=== PATIENT | male | born 1940 | race Caucasian/White ===

== ENCOUNTER 2020-01-23 12:18 | Emergency (ER) | payer MEDICARE, BC ==
[~2020-01-23 12:18] MED LIST: Dextrose 50% Abboject 50 ML SYRINGE ONE
[2020-01-23 12:53] LABS: #Lymphocytes 1.3 thou/uL (1.20-3.40); #Monocytes 0.5 thou/uL (0.11-0.59); #Neutrophils 8.8 thou/uL (1.40-6.50); %Basophils 0.1 % (0.0-1.0); %Eosinophils 0.3 % (0.0-10.0); %Lymphocytes 12.1 % (21.0-51.0); %Monocytes 4.8 % (0.0-10.0); %Neutrophils 82.6 % (42.0-75.0); Hemoglobin 8.6 g/dL (14.0-18.0); Mean Corpuscular HGB CONC 33.2 g/dL (32.0-36.0); Mean Corpuscular Hemoglobin 32.9 pg (27.0-31.0); Mean Corpuscular Volume 98.9 fL (78.0-98.0); Mean Platelet Volume 9.3 fL (7.4-10.4); Platelet Count 152 thou/uL (130-400); RBC Distribution Width 14.2 % (11.5-14.5); Red Blood Cell (RBC) Count 2.63 mill/uL (4.70-6.10); White Blood Cell (WBC) Count 10.7 thou/uL (4.8-10.8)
[2020-01-23 13:10] LABS: ALT (SGPT) 12 U/L (8-55); AST (SGOT) 18 U/L (5-34); Alkaline Phosphatase 90 U/L (40-110); Anion Gap 12 mmol/L (10-20); BUN (Urea Nitrogen) 66 mg/dL (8.4-25.7); Bilirubin, Total 0.2 mg/dL (0.2-1.2); CK (CPK) 21 U/L (30-200); Calc. Creatinine Clearance 0 mL/min (70-130); Calcium 7.7 mg/dL (7.8-10.44); Carbon Dioxide 24 mmol/L (23-31); Chloride 106 mmol/L (98-107); Estimated GFR-MDRD 27; Globulin 2.9 g/dL (2.4-3.5); Magnesium 1.6 mg/dL (1.6-2.6); Potassium 3.5 mmol/L (3.5-5.1); Protein, Total 4.9 g/dL (5.8-8.1); Sodium 138 mmol/L (136-145)
[2020-01-23 13:16] LABS: Glucose 30 mg/dL (83-110)
--- NOTE | 2020-01-23 13:34 | CT ---
CT HEAD WITHOUT CONTRAST: INDICATION: Mental status change. COMPARISON: No comparison. FINDINGS: No evidence of intracranial mass or hemorrhage. There is mild ventriculomegaly. Chronic ischemic wh ite matter changes. Cortical calcification and ischemic changes in the left occipital lobe with ex v acuo dilatation of the occipital horn suggests old occipital lobe infarct. Mucosal edema in the righ t sphenoid air cell. Paranasal sinuses and mastoids are otherwise clear. IMPRESSION: 1. Cortical atrophy and chronic ischemic change. Mild ventriculomegaly. 2. 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 3. No acute process identified. POS: OFF
[2020-01-23 14:00] LABS: Bacteria/HPF None Seen HPF (None Seen); Bilirubin Negative (Negative); Blood, Urine Trace (Negative); Clarity Turbid (Clear); Glucose, Urine (Dipstick) Normal (Negative); Ketone, Urine Negative (Negative); Leukocyte Negative Leu/uL (Negative); Nitrite Negative (Negative); Protein, Urine (Dipstick) 200 mg/dL (Neg-Trace); RBC/HPF 0-3 HPF (0-3); Specific Gravity, Urine 1.019 (1.002-1.036); Squamous Epithelial 0-3 HPF (0-3); Urobilinogen Normal mg/dL (Less than 2); WBC/HPF 0-3 HPF (0-3); pH, Urine 5.5 (5.0-9.0)
--- NOTE | 2020-01-23 14:25 | RAD ---
EXAM: Single view of the chest HISTORY: Hypoxia COMPARISON: None FINDINGS: Single view of the chest shows a normal sized cardiomediastinal silhouette. Multifocal hillary pheral opacities are seen consistent with Covid pneumonia. No pleural effusion is seen. No acute osseous abnormality. There is a right-sided PICC line with its tip in the superior vena cava. IMPRESSION: Multifocal opacities
[2020-01-23] MEDS ORDERED: Dextrose 10% in Water 1,000 ML IV SCH (15:15)
[2020-01-23] MEDS ORDERED: Hydrocortisone Sod Succ/PF 100 mg/2 ml Vial ONE (15:44)
[2020-01-23] MEDS ORDERED: cefTRIAXone\\ROCEPHIN 2 GM VIAL ONE (15:44)
== END 2020-01-23 16:25 | disposition short-term general hospital (02) ==
LOC: ERS 12:18
DX: U07.1 COVID-19 (principal); J12.89 Other viral pneumonia; E16.2 Hypoglycemia, unspecified
CPT/HCPCS: 36416; 51701; 70450; 71045; 80053; 81003; 81015; 82550; 82553; 83735; 84443; 84484; 85025; 93005; 96365; 96375; 96376; J0696; J1720